=== PATIENT | female | born 1945 | race Caucasian/White ===

== ENCOUNTER → 2017-02-05 | Outpatient (CLI) | payer MEDICARE, OTHER ==
[~2017-02-05] MED LIST: CALCIUM500 MG PO; CITRUCEL POWDE850 GM PO; CULTURELLE1 CAP PO; ESTER-C 500 MG1 EACH PO; GLUCOSAMINE &1 EACH PO; HALFPRIN81 MG PO; HYDROCHLOROTHIA25 MG PO; MIRALAX17 GM PO; MULTIPLE VITAM1 EAC2 PO; NEXIUM40 MG PO; OCUVITE SOFTGE1 EACH PO; OMEGA 3 FISH O1 EACH PO; PRAVACHOL80 MG PO; VITAMIN D31000 UNI1 PO; ZOLOFT100 MG PO; ZYRTEC10 M3 PO
== END | disposition short-term general hospital (02) ==
LOC: CLORTH 07:29
DX: M17.12 Unilateral primary osteoarthritis, left knee (principal)
CPT/HCPCS: J1100; J2795

== ENCOUNTER → 2017-02-26 | Outpatient (CLI) | payer MEDICARE, OTHER | END | disposition short-term general hospital (02) | LOC: CLORTH 09:05 | DX: Z47.89 Encounter for other orthopedic aftercare (principal) ==